=== PATIENT | female | born 1995 | race Caucasian/White ===

== ENCOUNTER 2020-08-26 20:39 | Outpatient (CLI) | payer BC ==
[~2020-08-26] VITALS: Ht 162.6 cm; Wt 101.4 kg
[2020-08-26] VITALS (8 sets, daily range): BP systolic 137–165; BP diastolic 85–104; PULSE 88–116; TEMP 98.5
--- NOTE | 2020-08-26 20:45 | NUR ---
G2L0 at 36 weeks and 4 days arrives to unit with complaint of increased blood pressures at home. Pt states that she had appointment today and was told to go home on bedrest and start taking blood pressures every morning and night and to come to hospital to be evaluated if elevated. Pt reports headaches, spots in vision, and feeling warm. Reports good movement, denies contractions, reports spotting when wiping but had SVE done in office today. Pt oriented to room, call light within reach, bed in low and locked position. Clean gown on. US and toco explained and applied. Plan of care reviewed with patient and spouse, verbalized understanding. SVE /-3 See charting for vitals.
[2020-08-26] MEDS ORDERED: PRENATAL TABLET PO (21:19)
[2020-08-26] MEDS ORDERED: FERROUS SU325 MG/TAB PO (21:19)
--- NOTE | 2020-08-26 21:40 | NUR ---
Straight cath at this time for UA. Pt did not tolerate well to completely drain bladder. Monitors removed, pt up to bathroom to void.
--- NOTE | 2020-08-26 22:05 | NUR ---
Category 1 FHR tracing obtained. Monitors off, pt up to bathroom to void.
[2020-08-26 22:15] LABS: BASO % 0.3 % (0.0-2.0); EOS # 0.2 (0.0-0.7); EOS % 1.2 % (0-4.0); GRAN # 8.6 (1.4-6.5); HEMATOCRIT 37.3 % (37.0-47.0); HEMOGLOBIN 12.6 g/dl (12.5-16.0); LYMPH # 2.8 (1.2-3.4); LYMPH % 21.4 % (20.0-51.0); MEAN CELL VOLUME 93 fl (80.0-100.0); MEAN CORPUSCULAR HEMOGLOBIN 31 pg (27.0-31.0); MEAN CORPUSCULAR HGB CONC 34 g/dl (33.0-37.0); MEAN PLATELET VOLUME 11.2 fl (7.4-10.4); MONO # 1.3 (0.1-0.6); MONO % 10.1 % (1.7-9.3); PLATELET COUNT 295 K/mm3 (130-400); RED BLOOD COUNT 4.03 M/mm3 (4.10-5.30)
[2020-08-26 22:26] LABS: ALBUMIN 3.2 gm/dL (3.5-5.0); BILIRUBIN,TOTAL 0.3 mg/dL (0.0-1.0); CALCIUM 8.9 mg/dL (8.4-10.2); CREATININE, serum 0.41 (0.52-1.25); POTASSIUM 3.9 mmol/L (3.4-5.0); TOTAL PROTEIN 6.8 gm/dL (6.4-8.2)
[2020-08-26 22:40] LABS: COLLECTION METHOD CATHETER
[2020-08-26 22:49] LABS: MUCOUS Present /lpf; PH 6 (5-8); SQUAMOUS EPITHELIAL 0-2 /hpf; URINE APPEARANCE Clear; URINE BACTERIA None Seen /hpf; URINE BILIRUBIN Negative (NEGATIVE); URINE BLOOD Negative (NEGATIVE); URINE COLOR Yellow; URINE GLUCOSE 1+ (NEGATIVE); URINE KETONE Negative (NEGATIVE); URINE LEUKOCYTE ESTERASE Negative (NEGATIVE); URINE NITRATE Negative (NEGATIVE); URINE PROTEIN(semi-quant) Negative (NEGATIVE); URINE RBC 0-2 /hpf; URINE UROBILINOGEN Negative (NEGATIVE); URINE WBC 0-2 /hpf
--- NOTE | 2020-08-26 23:05 | NUR ---
Discharge instructions reviewed with patient and spouse, verbalized understanding. Pt seen ambulating off unit with spouse.
== END 2020-08-26 23:10 | disposition home or self-care (01) ==
LOC: LDRO 20:39 → LDR 20:39 → LDRO 21:10 → LDR 23:10 → LDRO 23:10
PROVIDERS: Obstetrics & Gynecology
DX: O13.3 Gestational [pregnancy-induced] hypertension without significant proteinuria, third trimester (principal); Z3A.36 36 weeks gestation of pregnancy
CPT/HCPCS: OP

== ENCOUNTER 2020-08-27 10:55 | Inpatient (IN) | payer BC ==
[2020-08-27] VITALS (42 sets, daily range): BP systolic 122–158; BP diastolic 68–103; PULSE 87–932; TEMP 97.7–98.3
[~2020-08-27] VITALS: Ht 162.6 cm; Wt 101.4 kg
[~2020-08-27 10:55] MED LIST: FERROUS SU325 MG/TAB PO; PRENATAL TABLET PO
--- NOTE | 2020-08-27 11:00 | NUR ---
Patient arrives ambulatory with spouse with complaints of elevated blood pressure at home, headache that has not improved with 0900 dose of Tylenol, and seeing spots. Patient reports occasional cramping, denies vaginal bleeding or leaking of fluid, and reports normal movement. Patient was seen on L&D last evening and was encouraged to return this morning after speaking to [facility]. Patient changes into gown, EFM explained and placed. Assessment completed. VS obtained and lab at bedside. Patient updated on plan of care for lab work and continued blood pressure monitoring per . Patient agrees and denies questions.
[2020-08-27 11:28] LABS: COLLECTION METHOD CLEAN CATCH
[2020-08-27 11:45] LABS: BASO % 0.3 % (0.0-2.0); EOS # 0.1 (0.0-0.7); EOS % 0.6 % (0-4.0); GRAN # 8.2 (1.4-6.5); GRAN % 73.9 % (42.2-75.2); HEMATOCRIT 36.7 % (37.0-47.0); HEMOGLOBIN 12.1 g/dl (12.5-16.0); LYMPH # 1.9 (1.2-3.4); LYMPH % 16.9 % (20.0-51.0); MEAN CELL VOLUME 92 fl (80.0-100.0); MEAN CORPUSCULAR HEMOGLOBIN 30 pg (27.0-31.0); MEAN CORPUSCULAR HGB CONC 33 g/dl (33.0-37.0); MEAN PLATELET VOLUME 11.4 fl (7.4-10.4); MONO # 0.8 (0.1-0.6); MONO % 7.3 % (1.7-9.3); PLATELET COUNT 283 K/mm3 (130-400); REDCELL DISTRIBUTION WIDTH-CV 13.2 % (11.5-14.5)
[2020-08-27 12:02] LABS: MUCOUS Present /lpf; PH 6 (5-8); SQUAMOUS EPITHELIAL 0-2 /hpf; URINE APPEARANCE Hazy; URINE BACTERIA None Seen /hpf; URINE BILIRUBIN Negative (NEGATIVE); URINE BLOOD 1+ (NEGATIVE); URINE COLOR Yellow; URINE GLUCOSE 3+ (NEGATIVE); URINE KETONE Negative (NEGATIVE); URINE LEUKOCYTE ESTERASE 3+ (NEGATIVE); URINE NITRATE Negative (NEGATIVE); URINE PROTEIN(semi-quant) Negative (NEGATIVE); URINE RBC 0-2 /hpf; URINE UROBILINOGEN Negative (NEGATIVE)
[2020-08-27 12:02] LABS: ALBUMIN 3.1 gm/dL (3.5-5.0); BILIRUBIN,TOTAL 0.4 mg/dL (0.0-1.0); CALCIUM 8.8 mg/dL (8.4-10.2); CREATININE, serum 0.43 (0.52-1.25); POTASSIUM 3.7 mmol/L (3.4-5.0); TOTAL PROTEIN 6.5 gm/dL (6.4-8.2)
--- NOTE | 2020-08-27 13:30 | NUR ---
Dr. Vizcarra at bedside. Reviewed FHR strip and vital signs. Orders recieved, see physician documentation and orders. Reviewed plan of care, patient agrees and denies further questions. 1340- IV started in RH. Consents explained and signed. 1345- Magnesium Sulfate started at 4 G bolus per order after verification check by this RN and Forest Zelaya RN. RN remains at bedside. DTRs noted brisk. 1355- Second IV site started in , labs obtained and saline locked. 1415- Magnesium Sulfate 2 G infusing per order after verification check by this RN and Forest Zelaya RN. 1435- Hagen catheter placed per protocol. 1445- COVID19 test obtained and sent to lab after patient consent.
--- NOTE | 2020-08-27 15:25 | NUR ---
Patient refuses SVE at this time. Pitocin administration reviewed with patient, patient agrees and denies questions. Pitocin started at 2 mU per protocol and order after 2 RN verification with Forest Zelaya RN. Enmanuel infusing per protocol and order for pending GBS status.
--- NOTE | 2020-08-27 17:25 | NUR ---
Dr. Vizcarra at bedside, reviews FHR strip and vital signs. Vertex presentation confirmed via bedside ultrasound. SVE per provider . Discussed plan of care to continue Pitocin induction.
--- NOTE | 2020-08-27 20:00 | NUR ---
Anesthesia into room. Pt moves to edge of bed for epidural placement.
[2020-08-28] VITALS (70 sets, daily range): BP systolic 106–165; BP diastolic 61–98; PULSE 16–141; TEMP 98–98.8
--- NOTE | 2020-08-28 03:45 | NUR ---
Pt with nausea and emesis, also reports itching. Pt anxious, breathing fast. encouraged/ coached to slow breathing down, take deeper breathes. Zofran and Benadryl IV.
--- NOTE | 2020-08-28 05:00 | NUR ---
Pt turns self to RL, Pulse OX off. sleeping soundly.
--- NOTE | 2020-08-28 05:50 | NUR ---
plan of care reviewed with pt and spouse. Pitocin gtt to 22mu.
--- NOTE | 2020-08-28 09:00 | NUR ---
0822- UCs not tracing well due to maternal position, adjusted by RN. 0832- TOCO adjusted. 0845- TOCO adjusted. 0903- Pt assisted to Sitting u in bed, magno chiki. EFM and TOCO adjusted.
--- NOTE | 2020-08-28 12:15 | NUR ---
1210- SVE by Dr Durant. IUPC placed by without difficulty, Pt tolerated well. Pericare completed and Pt assisted to LL with peanutball.
--- NOTE | 2020-08-28 13:15 | NUR ---
1300- Pt complaining of pressure in her butt, denies cramping pain. Pt repositioned for SVE by this RN, . Pericare completed and Pt repositioned to Beata position. Pt encouraged to push epidural button if needed but to call out if not feeling relief. Discribed that pressure is harder to take away and that we may need to talk to [facility] about other options if not improved. Pt verbalized understanding, call light within reach.
--- NOTE | 2020-08-28 16:52 | NUR ---
162- Pt complete per Dr Carleen MEJIA. Hagen out without difficulty. 163- Pt begins pushing with UCs, Dr Durant and this RN remain at bedside with Pt. 163- IUPC removed by MD, Pt able to feel when contractions start. 165- Pt and room prepped for delivery. Madyson, nursery RN and Ambika, burner hand at bedside. 1651- of viable female . to mother's abd, tended to by nursery RN. Pitocin off. 1654- Spontaneous delivery of placenta, Pitocin on at 333ml/hr. Fundus massaged to firm by . 2nd degree laceration repaired. 170- Cytotec 800mcg given by . Pericare completed, ice pack to perineum. Pt repositioned to semi-fowlers, baby skin-2-skin.
[2020-08-28] MEDS ORDERED: MOTRIN 800800 MG/TAB PO (17:13)
[2020-08-28] MEDS ORDERED: PERCOCET 325 MG1 TA2 PO (17:13)
--- NOTE | 2020-08-28 20:00 | NUR ---
Tolerated dinner without nausea. IV to INT. Epidural dc'd. Up to bathroom with careful steady gait. Voids, performs own pericare after instruction. pad, panties, and clean gown on. Ambulates to room without difficulty.
[2020-08-29 05:00] VITALS: BP 137/70; PULSE 78; TEMP 98.1
[2020-08-29 08:01] VITALS: BP 122/70; PULSE 73; TEMP 98.1
--- NOTE | 2020-08-29 09:47 | NUR ---
Initial visit; Parents thanked [employer] for offering congratulations and God's blessings for the of their daughter. [employer] thanked family for choosing [facility].
[2020-08-29 15:41] VITALS: BP 128/70; PULSE 68; TEMP 98.8
[2020-08-29 21:00] VITALS: BP 138/88; PULSE 84; TEMP 97.4
[2020-08-30 07:40] VITALS: BP 126/79; PULSE 89; TEMP 97.8
--- NOTE | 2020-08-30 10:59 | NUR ---
1045DISCHARGE INSTRUCTIONS REVIEWED WITH PATIENT. PATIENT VERBALIZED UNDERSTANDING. WILL GATHER BELONGINGS AND NOTIFY THIS RN WHEN READY TO LEAVE.
--- NOTE | 2020-08-30 15:55 | NUR ---
1109 ALL PERSONAL BELONGINGS GATHERED FROM PATIENT ROOM. PATIENT LEFT AMBULATORY AND IN NO APPARENT DISTRESS. PATIENT ACCOMPANIED BY SPOUSE AND THIS RN.
== END 2020-08-30 11:05 | disposition home or self-care (01) | DRG 807 ==
LOC: LDRO 10:55 → LDR 11:09 → LDRO 13:32 → OB 08-28 20:15
PROVIDERS: Obstetrics & Gynecology; ADMIT Obstetrics & Gynecology
PROC: 10E0XZZ Delivery of Products of Conception, External Approach (ICD-10-PCS; principal; 2020-08-27)
PROC: 0KQM0ZZ Repair Perineum Muscle, Open Approach (ICD-10-PCS; 2020-08-27)
PROC: 10907ZC Drainage of Amniotic Fluid, Therapeutic from Products of Conception, Via Natural or Artificial Opening (ICD-10-PCS; 2020-08-27)
DX: O14.14 Severe pre-eclampsia complicating childbirth (principal); Z37.0 Single live birth; Z3A.36 36 weeks gestation of pregnancy; O13.4 Gestational [pregnancy-induced] hypertension without significant proteinuria, complicating childbirth; O99.214 Obesity complicating childbirth; E66.9 Obesity, unspecified; O72.1 Other immediate postpartum hemorrhage; O99.02 Anemia complicating childbirth; D64.9 Anemia, unspecified; O69.81X0 Labor and delivery complicated by cord around neck, without compression, not applicable or unspecified; O70.1 Second degree perineal laceration during delivery
CPT/HCPCS: J1200; J2405; J2540; J2590; J2795; J3475; J7120

== ENCOUNTER 2022-01-17 14:11 | Outpatient (CLI) | payer BC ==
[2022-01-17] VITALS (8 sets, daily range): BP systolic 131–138; BP diastolic 81–98; PULSE 83–111; TEMP 98.5
[~2022-01-17] VITALS: Ht 162.6 cm; Wt 102.7 kg
[~2022-01-17 14:11] MED LIST changes: +MOTRIN 800800 MG/TAB PO; +PERCOCET 325 MG1 TA2 PO
[2022-01-17] MEDS ORDERED: ASPIRIN E.C. 8181 MG PO (14:37)
[2022-01-17] MEDS ORDERED: TYLENOL 500MG500 MG PO (14:38)
--- NOTE | 2022-01-17 15:00 | NUR ---
1420- Pt arrives on unit ambulatory with complaints of a headache since last night and elevated BPs at home, 150's/90's. Pt into bathroom, provides urine sample. 1426- Pt into bed, EFM and TOCO on and tracing. Assessments completed. Pt denies VB, LOF, UCs. +FM per Pt but states decreased from "normal". Pt states she has had a headache since last night that has not improved with Extra Strength Tylenol x2 doses. POC reviewed, labs and UA, frequent BP checks. Pt denies questions. Call light at bedside.
[2022-01-17 15:20] LABS: COLLECTION METHOD CLEAN CATCH
[2022-01-17 15:32] LABS: BASO % 0.3 % (0.0-2.0); EOS # 0.1 K/mm3 (0.0-0.7); EOS % 0.5 % (0.0-4.0); GRAN # 6.8 K/mm3 (1.4-6.5); GRAN % 70.5 % (42.2-75.2); LYMPH % 20.6 % (20.0-51.0); MEAN CELL VOLUME 89 fl (80.0-100.0); MEAN CORPUSCULAR HEMOGLOBIN 30 pg (27-31); MEAN CORPUSCULAR HGB CONC 34 g/dl (33.0-37.0); MEAN PLATELET VOLUME 11.6 fl (7.4-10.4); MONO # 0.8 K/mm3 (0.1-0.6); MONO % 7.8 % (1.7-9.3); PLATELET COUNT 264 K/mm3 (130-400); RED BLOOD COUNT 3.95 M/mm3 (4.10-5.30); REDCELL DISTRIBUTION WIDTH-CV 12.2 % (11.5-14.5)
[2022-01-17 15:35] LABS: HEMATOCRIT 35.3 % (37.0-47.0)
[2022-01-17 15:36] LABS: PH 7 (5-8); URINE APPEARANCE Clear (CLEAR/HAZY); URINE BACTERIA Moderate /hpf (NONE SEEN); URINE BILIRUBIN Negative (NEGATIVE); URINE BLOOD Negative (NEGATIVE); URINE COLOR Straw (YELLOW); URINE GLUCOSE Negative (NEGATIVE); URINE KETONE Negative (NEGATIVE); URINE LEUKOCYTE ESTERASE 2+ (NEGATIVE); URINE NITRATE Negative (NEGATIVE); URINE PROTEIN(semi-quant) Negative (NEGATIVE); URINE UROBILINOGEN Negative (NEGATIVE)
[2022-01-17 15:45] LABS: ALBUMIN 2.3 gm/dL (3.5-5.0); BILIRUBIN,TOTAL 0.4 mg/dL (0.2-1.2); CALCIUM 8.7 mg/dL (8.4-10.2); CREATININE, serum 0.55 mg/dL (0.57-1.11); POTASSIUM 3.7 mmol/L (3.5-4.5); TOTAL PROTEIN 6.6 gm/dL (6.2-8.1)
--- NOTE | 2022-01-17 16:45 | NUR ---
1625- Dr Cohen at nurses station. Reviews strip and labs with this RN. [facility]OR[facility] to discharge Pt home and to follow-up with regularly scheduled appointment. 1630- Pt updated on POC, denies questions. EFM and TOCO off. Pt up to void. 1645- Discharge paperwork given and explained. Pt denies questions. Ambulates off unit in stable condition.
== END 2022-01-17 16:45 | disposition home or self-care (01) ==
LOC: LDRO 14:11 → LDR 14:23 → LDRO 16:45
PROVIDERS: Obstetrics & Gynecology
DX: O13.3 Gestational [pregnancy-induced] hypertension without significant proteinuria, third trimester (principal); O26.893 Other specified pregnancy related conditions, third trimester; R51.9 Headache, unspecified; Z3A.42 42 weeks gestation of pregnancy
CPT/HCPCS: OP

== ENCOUNTER 2022-01-29 06:13 | Inpatient (IN) | payer BC ==
[~2022-01-29] VITALS: Ht 162.6 cm; Wt 103.6 kg
[2022-01-29] VITALS (39 sets, daily range): BP systolic 102–149; BP diastolic 57–96; PULSE 75–133; TEMP 98.2–101.1
[~2022-01-29 06:13] MED LIST changes: +ASPIRIN E.C. 8181 MG PO; +TYLENOL 500MG500 MG PO
[2022-01-29 07:54] LABS: BASO # 0.1 K/mm3 (0.0-0.2); BASO % 0.5 % (0.0-2.0); EOS # 0.2 K/mm3 (0.0-0.7); EOS % 1.4 % (0.0-4.0); GRAN # 7.8 K/mm3 (1.4-6.5); GRAN % 70.2 % (42.2-75.2); HEMOGLOBIN 12.1 g/dl (12.5-16.0); LYMPH # 1.7 K/mm3 (1.2-3.4); LYMPH % 15.3 % (20.0-51.0); MEAN CELL VOLUME 89 fl (80.0-100.0); MEAN CORPUSCULAR HEMOGLOBIN 30 pg (27-31); MEAN CORPUSCULAR HGB CONC 33 g/dl (33.0-37.0); MEAN PLATELET VOLUME 11.3 fl (7.4-10.4); MONO # 1.3 K/mm3 (0.1-0.6); MONO % 12.1 % (1.7-9.3); PLATELET COUNT 276 K/mm3 (130-400); RED BLOOD COUNT 4.06 M/mm3 (4.10-5.30); REDCELL DISTRIBUTION WIDTH-CV 12.6 % (11.5-14.5)
[2022-01-29 07:55] LABS: HEMATOCRIT 36.2 % (37.0-47.0)
--- NOTE | 2022-01-29 11:49 | NUR ---
1030: PT SITTING FOR EPIDURAL. UNABLE TO MONITOR FHR. RN CONTINOUSLY AT BEDSIDE. IV BOLUS GIVEN, PULSE OX ON, AND TIME OUT COMPLETED.
[2022-01-29 15:15] LABS: ALBUMIN 2.3 gm/dL (3.5-5.0); BILIRUBIN,TOTAL 0.3 mg/dL (0.2-1.2); CALCIUM 8.7 mg/dL (8.4-10.2); CREATININE, serum 0.55 mg/dL (0.57-1.11); TOTAL PROTEIN 6.8 gm/dL (6.2-8.1)
--- NOTE | 2022-01-29 17:47 | NUR ---
1546: PT PUSHING WITH CONTRACTIONS. RN AT BEDSIDE CONTINUOUSLY MONITORING FHR.
--- NOTE | 2022-01-29 18:38 | NUR ---
1814: PT REPORTS FELING DIZZY, HOT AND SWEATY. PT STATES "I DON'T FEEL GOOD." TEMP 101.1 ORALLY. VS WNL. 1821: NOTIFIED. ORDERS GIVEN.
[2022-01-29] MEDS ORDERED: MOTRIN 800800 MG/TAB PO (22:19)
[2022-01-30 01:00] VITALS: BP 127/77; PULSE 78; TEMP 97.7
[2022-01-30 05:30] VITALS: BP 113/64; PULSE 76; TEMP 97.9
[2022-01-30 08:26] VITALS: BP 130/81; PULSE 88; TEMP 98
--- NOTE | 2022-01-30 12:38 | NUR ---
[employer]ations Recruiter offered congrats to patient.
--- NOTE | 2022-01-30 17:39 | NUR ---
1725: PT DISCHARGED HOME IN STABLE CONDITION WITH BABY. DISCHARGE INSTRUCTIONS GIVEN. PT VERBALIZED UNDERSTANDING.
== END 2022-01-30 17:25 | disposition home or self-care (01) | DRG 807 ==
LOC: OB 06:13 → LDR 06:13 → OB 20:30
PROVIDERS: ADMIT Obstetrics & Gynecology
PROC: 10E0XZZ Delivery of Products of Conception, External Approach (ICD-10-PCS; principal; 2022-01-29)
PROC: 10907ZC Drainage of Amniotic Fluid, Therapeutic from Products of Conception, Via Natural or Artificial Opening (ICD-10-PCS; 2022-01-29)
PROC: 3E033VJ Introduction of Other Hormone into Peripheral Vein, Percutaneous Approach (ICD-10-PCS; 2022-01-29)
DX: O14.04 Mild to moderate pre-eclampsia, complicating childbirth (principal); Z37.0 Single live birth; O13.4 Gestational [pregnancy-induced] hypertension without significant proteinuria, complicating childbirth; O99.02 Anemia complicating childbirth; D64.9 Anemia, unspecified; Z3A.38 38 weeks gestation of pregnancy; O99.214 Obesity complicating childbirth; O69.81X0 Labor and delivery complicated by cord around neck, without compression, not applicable or unspecified; E66.9 Obesity, unspecified; O70.1 Second degree perineal laceration during delivery
CPT/HCPCS: J0290; J1580; J2590; J7120